=== PATIENT | male | born 1960 | race Caucasian/White ===

== ENCOUNTER 2019-10-08 19:17 | Inpatient (IN) ==
[2019-10-08] MEDS ORDERED: predniSONE 20 MG TABLET PO ONE (19:39)
[2019-10-08] MEDS ORDERED: Ipratropium/Albuterol Neb 3 ML IH ONE ×2 (19:39→21:13)
[2019-10-08 19:52] LABS: Basophils # 0.1 K/mcL (0.0-0.2); Basophils % 0.3 %; Eosinophils # 0.3 K/mcL (0.0-0.6); Eosinophils % 1.4 %; Hemoglobin 16.4 g/dL (12.9-16.9); Immature Granulocytes % 0.7 % (0-4); Lymphocytes # 1.4 K/mcL (0.6-4.6); Mean Corpuscular HGB Conc 33.5 g/dL (31.6-35.5); Mean Corpuscular Volume 92.6 fL (83.0-100.0); Mean Platelet Volume 10.2 fL (9.4-12.4); Monocytes # 1.3 K/mcL (0.0-1.3); Monocytes % 6.5 %; Neutrophils # 16.9 K/mcL (1.6-8.9); Platelet Count 256 K/mcL (140-400); Red Blood Count 5.29 M/mcL (4.19-5.50); Red Cell Distribution Width 13.1 % (11.5-14.5); Segmented Neutrophils % 84.1 %; White Blood Count 20.1 K/mcL (4.3-11.1)
[2019-10-08 20:12] LABS: BUN/Creatinine Ratio 15 (6-26); Blood Urea Nitrogen 14 mg/dL (6-20); Calcium 9.3 mg/dL (8.6-10.3); Carbon Dioxide 28 mEq/L (23-29); Chloride 100 mEq/L (98-107); Glucose 133 mg/dL (70-105); Osmolality,Calculated 286 (280-300); Potassium 4.4 mEq/L (3.5-5.1); Sodium 137 mEq/L (136-145); eGFR For African Americans > 60 (> 60); eGFR For Non-African Americans > 60 (> 60)
[2019-10-08] MEDS ORDERED: levoFLOXacin 750 MG TABLET PO ONE (20:48)
[2019-10-08] MEDS ORDERED: MethylPREDNISolone 40 MG/ML VIAL IVP SCH (21:15)
[2019-10-09] MEDS ORDERED: Naloxone 0.4 MG/ML INJ IVP PRN (00:35)
[2019-10-09] MEDS: Acetaminophen 325 MG TABLET PO PRN ×2 (03:24→23:43)
[2019-10-09 06:24] LABS: Basophils % 0.1 %; Hematocrit 45.7 % (37.5-50.1); Hemoglobin 15.2 g/dL (12.9-16.9); Immature Granulocytes % 0.6 % (0-4); Lymphocytes # 0.6 K/mcL (0.6-4.6); Lymphocytes % 3.1 %; Mean Corpuscular HGB Conc 33.3 g/dL (31.6-35.5); Mean Corpuscular Volume 93.3 fL (83.0-100.0); Mean Platelet Volume 9.8 fL (9.4-12.4); Monocytes # 0.2 K/mcL (0.0-1.3); Monocytes % 1.3 %; Neutrophils # 17.1 K/mcL (1.6-8.9); Platelet Count 223 K/mcL (140-400); Segmented Neutrophils % 94.9 %
[2019-10-09 06:43] LABS: BUN/Creatinine Ratio 17 (6-26); Blood Urea Nitrogen 17 mg/dL (6-20); Calcium 9.1 mg/dL (8.6-10.3); Carbon Dioxide 28 mEq/L (23-29); Chloride 98 mEq/L (98-107); Glucose 217 mg/dL (70-105); Osmolality,Calculated 288 (280-300); Potassium 4.5 mEq/L (3.5-5.1); Sodium 135 mEq/L (136-145); eGFR For African Americans > 60 (> 60); eGFR For Non-African Americans > 60 (> 60)
[2019-10-09] MEDS: MethylPREDNISolone 40 MG/ML VIAL IVP SCH ×3 (09:02→23:46)
[2019-10-09] MEDS: Ipratropium/Albuterol Neb 3 ML IH SCH ×3 (10:20→21:48)
[2019-10-09] MEDS: Budesonide/Formoterol 160/4.5 1 PUFF INH IH SCH ×2 (14:39→21:48)
[2019-10-09] MEDS: levoFLOXacin 750 MG TABLET PO SCH (16:50)
[2019-10-10] MEDS: Nicotine 14 MG PATCH.TD24 TD SCH ×2 (00:09→22:46)
[2019-10-10] MEDS: Ipratropium/Albuterol Neb 3 ML IH SCH ×4 (03:44→21:59)
[2019-10-10 05:40] LABS: Basophils % 0.2 %; Hemoglobin 14.2 g/dL (12.9-16.9); Lymphocytes # 0.9 K/mcL (0.6-4.6); Lymphocytes % 3.4 %; Mean Corpuscular Volume 93.9 fL (83.0-100.0); Mean Platelet Volume 10.3 fL (9.4-12.4); Monocytes % 4.1 %; Platelet Count 202 K/mcL (140-400); Red Blood Count 4.58 M/mcL (4.19-5.50); Red Cell Distribution Width 13.1 % (11.5-14.5); Segmented Neutrophils % 91.3 %; White Blood Count 25.2 K/mcL (4.3-11.1)
[2019-10-10 05:47] LABS: Basophils # 0.1 K/mcL (0.0-0.2)
[2019-10-10] MEDS: MethylPREDNISolone 40 MG/ML VIAL IVP SCH (08:24)
[2019-10-10] MEDS: Budesonide/Formoterol 160/4.5 1 PUFF INH IH SCH ×2 (09:28→21:59)
[2019-10-10] MEDS: levoFLOXacin 750 MG TABLET PO SCH (16:26)
[2019-10-10] MEDS ORDERED: MethylPREDNISolone 40 MG/ML VIAL IVP SCH (18:00)
[2019-10-11] MEDS: Ipratropium/Albuterol Neb 3 ML IH SCH ×2 (03:49→09:10)
[2019-10-11 05:40] LABS: Basophils # 0.1 K/mcL (0.0-0.2); Basophils % 0.3 %; Eosinophils # 0.3 K/mcL (0.0-0.6); Eosinophils % 1.8 %; Hematocrit 43.5 % (37.5-50.1); Hemoglobin 14.2 g/dL (12.9-16.9); Immature Granulocytes % 1.1 % (0-4); Lymphocytes # 2.6 K/mcL (0.6-4.6); Lymphocytes % 14.6 %; Mean Corpuscular HGB Conc 32.6 g/dL (31.6-35.5); Mean Corpuscular Hemoglobin 30.3 pg (28.0-33.3); Mean Corpuscular Volume 92.9 fL (83.0-100.0); Mean Platelet Volume 10.2 fL (9.4-12.4); Monocytes # 1.2 K/mcL (0.0-1.3); Monocytes % 6.7 %; Neutrophils # 13.6 K/mcL (1.6-8.9); Platelet Count 189 K/mcL (140-400); Red Blood Count 4.68 M/mcL (4.19-5.50); Red Cell Distribution Width 13.3 % (11.5-14.5); Segmented Neutrophils % 75.5 %
[2019-10-11 05:55] LABS: BUN/Creatinine Ratio 28 (6-26); Blood Urea Nitrogen 26 mg/dL (6-20); Carbon Dioxide 30 mEq/L (23-29); Chloride 102 mEq/L (98-107); Glucose 121 mg/dL (70-105); Osmolality,Calculated 292 (280-300); Potassium 3.7 mEq/L (3.5-5.1); Sodium 138 mEq/L (136-145); eGFR For African Americans > 60 (> 60); eGFR For Non-African Americans > 60 (> 60)
[2019-10-11 06:02] LABS: Calcium 8.9 mg/dL (8.6-10.3)
[2019-10-11 06:58] VITALS: BP 116/68
[2019-10-11] MEDS ORDERED: MethylPREDNISolone 40 MG/ML VIAL IVP SCH (09:00)
[2019-10-11] MEDS: Budesonide/Formoterol 160/4.5 1 PUFF INH IH SCH (09:15)
== END 2019-10-11 13:44 | disposition home or self-care (01) | DRG 190 ==
LOC: INPGRE 19:17 → EMEROOGRE 19:17 → SUATTDRO 10-09 00:14 → INPGRE 10-09 00:38
PROVIDERS: ADMIT Family Medicine; ATTEND Family Medicine